=== PATIENT | male | born 1990 | race Caucasian/White ===

== ENCOUNTER → 2020-05-22 | Outpatient (CLI) | payer OTHER ==
[~2020-05-22] MED LIST: LISD60CA PO
== END | disposition home or self-care (01) ==
LOC: WOUND 07:55
PROVIDERS: ATTEND Internal Medicine
DX: S86.322A Laceration of muscle(s) and tendon(s) of peroneal muscle group at lower leg level, left leg, initial encounter (principal); S81.802A Unspecified open wound, left lower leg, initial encounter; Z79.82 Long term (current) use of aspirin; X58.XXXA Exposure to other specified factors, initial encounter; Y93.89 Activity, other specified; Y92.89 Other specified places as the place of occurrence of the external cause; Y99.8 Other external cause status
CPT/HCPCS: 97597; 97598; 99205

== ENCOUNTER → 2020-05-29 | Outpatient (CLI) | payer OTHER | END | disposition home or self-care (01) | LOC: WOUND 07:55 | PROVIDERS: ATTEND Internal Medicine | DX: S86 Injury of muscle, fascia and tendon at lower leg level (principal); S81.802D Unspecified open wound, left lower leg, subsequent encounter; X58.XXXD Exposure to other specified factors, subsequent encounter | CPT/HCPCS: 97597; 97598 ==

== ENCOUNTER 2020-06-05 08:03 | Outpatient (CLI) | payer OTHER | END 2020-06-05 23:59 | disposition home or self-care (01) | LOC: WOUND 08:03 | PROVIDERS: ATTEND Internal Medicine | DX: S86 Injury of muscle, fascia and tendon at lower leg level (principal); S81.802D Unspecified open wound, left lower leg, subsequent encounter; Z79.82 Long term (current) use of aspirin; V89.2XXD Person injured in unspecified motor-vehicle accident, traffic, subsequent encounter | CPT/HCPCS: 11042; 11045; 97606 ==

== ENCOUNTER → 2020-06-07 | Outpatient (CLI) | payer OTHER | END | disposition home or self-care (01) | LOC: WOUND 15:09 | PROVIDERS: ATTEND Internal Medicine | DX: S86 Injury of muscle, fascia and tendon at lower leg level (principal); Z79.82 Long term (current) use of aspirin; V89.2XXD Person injured in unspecified motor-vehicle accident, traffic, subsequent encounter | CPT/HCPCS: 97606 ==

== ENCOUNTER → 2020-06-09 | Outpatient (CLI) | payer OTHER | END | disposition home or self-care (01) | LOC: WOUND 08:18 | PROVIDERS: ATTEND Internal Medicine | DX: S86 Injury of muscle, fascia and tendon at lower leg level (principal); V86.55XD Driver of 3- or 4- wheeled all-terrain vehicle (ATV) injured in nontraffic accident, subsequent encounter | CPT/HCPCS: 97606 ==

== ENCOUNTER → 2020-06-12 | Outpatient (CLI) | payer OTHER | END | disposition home or self-care (01) | LOC: WOUND 08:03 | PROVIDERS: ATTEND Internal Medicine | DX: S81.802D Unspecified open wound, left lower leg, subsequent encounter (principal); S86 Injury of muscle, fascia and tendon at lower leg level; Z79.82 Long term (current) use of aspirin; V89.2XXD Person injured in unspecified motor-vehicle accident, traffic, subsequent encounter | CPT/HCPCS: 97597; 97598 ==

== ENCOUNTER → 2020-06-14 | Outpatient (CLI) | payer OTHER | END | disposition home or self-care (01) | LOC: WOUND 14:19 | PROVIDERS: ATTEND Internal Medicine | DX: S81.802D Unspecified open wound, left lower leg, subsequent encounter (principal); S86 Injury of muscle, fascia and tendon at lower leg level; Z79.82 Long term (current) use of aspirin; V89.2XXD Person injured in unspecified motor-vehicle accident, traffic, subsequent encounter | CPT/HCPCS: 97606 ==

== ENCOUNTER → 2020-06-16 | Outpatient (CLI) | payer OTHER | END | disposition home or self-care (01) | LOC: WOUND 10:30 | PROVIDERS: ATTEND Internal Medicine Cardiovascular Disease | DX: S81.802D Unspecified open wound, left lower leg, subsequent encounter (principal); S86 Injury of muscle, fascia and tendon at lower leg level; Z79.82 Long term (current) use of aspirin; V89.2XXD Person injured in unspecified motor-vehicle accident, traffic, subsequent encounter | CPT/HCPCS: 97606 ==

== ENCOUNTER → 2020-06-23 | Outpatient (CLI) | payer OTHER | END | disposition home or self-care (01) | LOC: WOUND 12:45 | PROVIDERS: ATTEND Internal Medicine | DX: S86 Injury of muscle, fascia and tendon at lower leg level (principal); X58.XXXD Exposure to other specified factors, subsequent encounter | CPT/HCPCS: 97606 ==

== ENCOUNTER → 2020-06-26 | Outpatient (CLI) | payer OTHER | END | disposition home or self-care (01) | LOC: WOUND 10:27 | PROVIDERS: ATTEND Internal Medicine | DX: S81.802D Unspecified open wound, left lower leg, subsequent encounter (principal); S86 Injury of muscle, fascia and tendon at lower leg level; Z79.82 Long term (current) use of aspirin; V89.2XXD Person injured in unspecified motor-vehicle accident, traffic, subsequent encounter | CPT/HCPCS: 97597; 97598 ==

== ENCOUNTER → 2020-06-28 | Outpatient (CLI) | payer OTHER | END | disposition home or self-care (01) | LOC: WOUND 12:47 | PROVIDERS: ATTEND Internal Medicine | DX: S81.802D Unspecified open wound, left lower leg, subsequent encounter (principal); S86 Injury of muscle, fascia and tendon at lower leg level; Z79.82 Long term (current) use of aspirin; V89.2XXD Person injured in unspecified motor-vehicle accident, traffic, subsequent encounter | CPT/HCPCS: 97606 ==

== ENCOUNTER → 2020-07-03 | Outpatient (CLI) | payer OTHER | END | disposition home or self-care (01) | LOC: WOUND 07:40 | PROVIDERS: ATTEND Internal Medicine | DX: S81.802D Unspecified open wound, left lower leg, subsequent encounter (principal); S86 Injury of muscle, fascia and tendon at lower leg level; Z79.82 Long term (current) use of aspirin; V89.2XXD Person injured in unspecified motor-vehicle accident, traffic, subsequent encounter | CPT/HCPCS: 97606 ==

== ENCOUNTER → 2020-07-05 | Outpatient (CLI) | payer OTHER | END | disposition home or self-care (01) | LOC: WOUND 13:55 | PROVIDERS: ATTEND Internal Medicine | DX: S81.802D Unspecified open wound, left lower leg, subsequent encounter (principal); S86 Injury of muscle, fascia and tendon at lower leg level; Z79.82 Long term (current) use of aspirin; V89.2XXD Person injured in unspecified motor-vehicle accident, traffic, subsequent encounter | CPT/HCPCS: 97597; 97598 ==

== ENCOUNTER → 2020-07-07 | Outpatient (CLI) | payer OTHER | END | disposition home or self-care (01) | LOC: WOUND 07:52 | PROVIDERS: ATTEND Internal Medicine | DX: S81.802D Unspecified open wound, left lower leg, subsequent encounter (principal); S86 Injury of muscle, fascia and tendon at lower leg level; Z79.82 Long term (current) use of aspirin; V89.2XXD Person injured in unspecified motor-vehicle accident, traffic, subsequent encounter | CPT/HCPCS: 97606 ==

== ENCOUNTER → 2020-07-10 | Outpatient (CLI) | payer OTHER | END | disposition home or self-care (01) | LOC: WOUND 09:06 | PROVIDERS: ATTEND Internal Medicine | DX: S81.802D Unspecified open wound, left lower leg, subsequent encounter (principal); S86 Injury of muscle, fascia and tendon at lower leg level; Z79.82 Long term (current) use of aspirin; V89.2XXD Person injured in unspecified motor-vehicle accident, traffic, subsequent encounter | CPT/HCPCS: 97597; 97598 ==

== ENCOUNTER → 2020-07-12 | Outpatient (CLI) | payer OTHER | END | disposition home or self-care (01) | LOC: WOUND 11:10 | PROVIDERS: ATTEND Internal Medicine | DX: S81.802D Unspecified open wound, left lower leg, subsequent encounter (principal); S86 Injury of muscle, fascia and tendon at lower leg level; Z79.82 Long term (current) use of aspirin; V89.2XXD Person injured in unspecified motor-vehicle accident, traffic, subsequent encounter | CPT/HCPCS: 97606 ==

== ENCOUNTER → 2020-07-14 | Outpatient (CLI) | payer OTHER | END | disposition home or self-care (01) | LOC: WOUND 08:00 | PROVIDERS: ATTEND Internal Medicine Cardiovascular Disease | DX: S81.802D Unspecified open wound, left lower leg, subsequent encounter (principal); S86 Injury of muscle, fascia and tendon at lower leg level; Z79.82 Long term (current) use of aspirin; V89.2XXD Person injured in unspecified motor-vehicle accident, traffic, subsequent encounter | CPT/HCPCS: 97606 ==

== ENCOUNTER 2020-07-17 14:23 | Outpatient (CLI) | payer OTHER | END 2020-07-17 23:59 | disposition home or self-care (01) | LOC: WOUND 14:23 | PROVIDERS: ATTEND Internal Medicine | DX: S81.802D Unspecified open wound, left lower leg, subsequent encounter (principal); S86 Injury of muscle, fascia and tendon at lower leg level; Z79.82 Long term (current) use of aspirin; V89.2XXD Person injured in unspecified motor-vehicle accident, traffic, subsequent encounter | CPT/HCPCS: 97597; 97598 ==

== ENCOUNTER → 2020-07-20 | Outpatient (CLI) | payer OTHER | END | disposition home or self-care (01) | LOC: WOUND 12:59 | PROVIDERS: ATTEND Internal Medicine | DX: S81.802D Unspecified open wound, left lower leg, subsequent encounter (principal); S86 Injury of muscle, fascia and tendon at lower leg level; Z79.82 Long term (current) use of aspirin; V89.2XXD Person injured in unspecified motor-vehicle accident, traffic, subsequent encounter | CPT/HCPCS: 97605 ==

== ENCOUNTER → 2020-07-24 | Outpatient (CLI) | payer OTHER | END | disposition home or self-care (01) | LOC: WOUND 09:27 | PROVIDERS: ATTEND Internal Medicine Cardiovascular Disease | DX: S81.802D Unspecified open wound, left lower leg, subsequent encounter (principal); S86 Injury of muscle, fascia and tendon at lower leg level; Z79.82 Long term (current) use of aspirin; V89.2XXD Person injured in unspecified motor-vehicle accident, traffic, subsequent encounter | CPT/HCPCS: 97605 ==

== ENCOUNTER → 2020-07-31 | Outpatient (CLI) | payer OTHER | END | disposition home or self-care (01) | LOC: WOUND 13:16 | PROVIDERS: ATTEND Internal Medicine | DX: S81.802D Unspecified open wound, left lower leg, subsequent encounter (principal); S86 Injury of muscle, fascia and tendon at lower leg level; Z79.82 Long term (current) use of aspirin; V89.2XXD Person injured in unspecified motor-vehicle accident, traffic, subsequent encounter | CPT/HCPCS: 97597; 97598 ==